=== PATIENT | male | born 1940 | race Caucasian/White ===

== ENCOUNTER 2018-07-01 05:58 | Day surgery (SDC) | payer MEDICARE, OTHER ==
[2018-07-01] MEDS ORDERED: fentaNYL 100 MCG/2 ML SDV IV ONE ×3 (05:59→06:54)
[2018-07-01] MEDS ORDERED: Midazolam 1 MG/ML 2 ML SDV IV ONE ×5 (05:59→07:10)
[2018-07-01] MEDS ORDERED: Dextrose 5%-0.45% NaCl 1,000 ML IV SCH (06:00)
[2018-07-01] MEDS ORDERED: Sodium Chloride 0.9% 10 ML Syringe FLUSH PRN (06:00)
[2018-07-01] MEDS ORDERED: fentaNYL 100 MCG/2 ML SDV ONE (06:10)
[2018-07-01] MEDS ORDERED: Midazolam 1 MG/ML 2 ML SDV ONE (06:10)
--- NOTE | 2018-07-01 17:16 | OR ---
DATE: 07/01/2018 PROCEDURES: Total colonoscopy, narrow-band imaging, and multiple cold snare polypectomies. INSTRUMENT USED: PCF-H180 AL Olympus video colonoscope. PREMEDICATIONS: Fentanyl 100 mcg intravenous, Versed 3.5 mg intravenous. Nasal O2 cannula. The procedure was done under pulse oximetry, BP recording, and supervisor sewer system. INDICATION: The patient with high-risk family history for colon cancer; two brothers with colon cancer. The patient has had colonic polyps before and has had more difficulties of constipation. Colonoscopic examination is done for detection of any polypoid lesions and removal. Endoscopic hemostasis therapy if needed. DESCRIPTION OF PROCEDURE: Initial rectal exam was unremarkable. Rigid anoscopy was normal. The colonoscope was passed with ease. Few scattered diverticula were noted in the distal left colon along with deformity. The scope was passed with ease up to the ileocecal area. Photographs were taken of the cecum showing 5-mm sized benign-appearing polyp at the ileocecal junction. NBI views were obtained. Photographs were taken. Cold snare polypectomy was done. The tissue was retrieved and sent for histopathology. No bleeding was noted from any of the visualized areas at the commencement of the examination. The bowel showed fecal material that had to be aspirated clear. No stricture. No vascular ectasia. No large isolated ulcerations seen. No evidence of diffuse and patchy bowel disease in the form of friability, contact bleeding, or ulcerations. In the mid transverse colon, 5-mm sized benign-appearing polyp was noted. Photograph was taken. Cold snare polypectomy was done. The tissue was retrieved and sent for histopathology. Probing the proximal sides of folds and flexures, using adequate distention and clearing up the stool material, withdrawal of the scope was made. No bleeding was noted from any of the visualized areas at the completion of examination. IMPRESSION: 1. Diverticulosis. 2. Colonic polyps. The patient tolerated the procedure well. [facility] /[id number]
== END 2018-07-01 09:15 | disposition home or self-care (01) ==
LOC: DL.ENDO 05:58
PROVIDERS: ATTEND Internal Medicine Gastroenterology
DX: K59.00 Constipation, unspecified (principal); D12.3 Benign neoplasm of transverse colon; K57.30 Diverticulosis of large intestine without perforation or abscess without bleeding; I89.0 Lymphedema, not elsewhere classified; I10 Essential (primary) hypertension; E78.5 Hyperlipidemia, unspecified; N40.0 Benign prostatic hyperplasia without lower urinary tract symptoms; M81.0 Age-related osteoporosis without current pathological fracture; Z79.82 Long term (current) use of aspirin; Z79.899 Other long term (current) drug therapy; Z88.8 Allergy status to other drugs, medicaments and biological substances; Z86.010 Personal history of colon polyps; Z80.0 Family history of malignant neoplasm of digestive organs
CPT/HCPCS: 45385; J2250; J3010; J7042

== ENCOUNTER 2021-08-20 07:12 | Emergency (ER) | payer MEDICARE, OTHER ==
--- NOTE | 2021-08-20 07:41 | EDM.PDOC ---
ED HPI GENERAL MEDICAL PROBLEM - General Stated Complaint: TROUBLE BREATHING ON WEDNESDAY / PLEASE CHECK IT OUT Time Seen by Provider: 08/20/21 07:30 Source of Information: Reports: Patient, RN, RN Notes Reviewed History Limitations: Reports: No Limitations - History of Present Illness INITIAL COMMENTS - FREE TEXT/NARRATIVE: Omid is an 80 y/o male who presents to the ED via personal vehicle with complaints of transient shortness of breath two days ago. The patient reports he was eating his supper quickly when he noted the need to belch, but felt as though he was unable to. He notes this sensation caused him to feel short of breath for about one minute which then spontaneously subsided. He denies reoccurrence of this sensation. He denies recent illness, fever, shaking chills, cough, sore throat, chest pain/pressure, palpitations, nausea, or vomiting. He denies decrease in appetite or dyspepsia. He denies any changes to his daily medications. He denies tobacco, alcohol, or recreational drug use. - Related Data Allergies Allergy/AdvReac Type Severity Reaction Status Date / Time atorvastatin [From Lipitor] Allergy Cannot Verified 07/01/18 06:14 Remember simvastatin [From Zocor] Allergy Itching Verified 06/27/18 10:39 Home Meds: Home Meds Ascorbic Acid [Vitamin C] 500 mg PO DAILY 06/30/18 [History] Aspirin [Halfprin] 81 mg PO DAILY 06/30/18 [History] Cholecalciferol (Vitamin D3) [Vitamin D3] 1 tab PO DAILY 06/30/18 [History] Dutasteride 0.5 mg PO BEDTIME 06/30/18 [History] Krill/[place]-3/Dha/Epa/Lipids [Krill Oil 300 mg Softgel] 300 mg PO ASDIRECTED 06/30/18 [History] Lutein/Minerals/Vit A,C & E [Ocuvite] 1 tab PO DAILY 06/30/18 [History] Multivitamin [Multivitamins] 1 tab PO ASDIRECTED 06/30/18 [History] Pravastatin Sodium 20 mg PO BEDTIME 06/30/18 [History] Ubidecarenone [Co Q-10] 100 mg PO DAILY 06/30/18 [History] amLODIPine Besylate [Amlodipine Besylate] 5 mg PO BEDTIME 06/30/18 [History] Past Medical History HEENT History: Reports: Retinal Detachment Other HEENT History: wears glasses. 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 Cardiovascular History: Reports: High Cholesterol, Hypertension Respiratory History: Reports: None Gastrointestinal History: Reports: Other (See Below) Other Gastrointestinal History: celiac disease Genitourinary History: Reports: BPH Musculoskeletal History: Reports: Osteoporosis Neurological History: Reports: None Endocrine/Metabolic History: Reports: None Hematologic History: Reports: None Immunologic History: Reports: None Oncologic (Cancer) History: Reports: None Dermatologic History: Reports: Psoriasis - Infectious Disease History Infectious Disease History: Reports: Measles, Mumps - Past Surgical History HEENT Surgical History: Reports: Detached Retina Cardiovascular Surgical History: Reports: None Respiratory Surgical History: Reports: None GI Surgical History: Reports: Colonoscopy Male Surgical History: Reports: Prostate Biopsy Social & Family History - Family History Family Medical History: No Pertinent Family History - Caffeine Use Caffeine Use: Reports: Coffee Other Caffeine Use: rare ED ROS GENERAL - Review of Systems Review Of Systems: Comprehensive ROS is negative, except as noted in HPI. ED EXAM, GENERAL - Physical Exam Exam: See Below Exam Limited By: No Limitations General Appearance: Alert, No Apparent Distress Eye Exam: Bilateral Eye: EOMI, Normal Inspection, PERRL (3mm) Ears: Normal External Exam, Hearing Grossly Normal Nose: Normal Inspection, Normal Mucosa, No Blood Throat/Mouth: Normal Inspection, Normal Oropharynx, Normal Voice, No Airway Compromise Head: Atraumatic, Normocephalic Neck: Normal Inspection, Supple, Non-Tender, Full Range of Motion Respiratory/Chest: No Respiratory Distress, Lungs Clear, Normal Breath Sounds, No Accessory Muscle Use, Chest Non-Tender. No: Crackles, Rales, Rhonchi, Wheezing, Stridor Cardiovascular: Normal Peripheral Pulses, Regular Rate, Rhythm, No Edema, No Gallop, No JVD, Systolic Murmur (2/6, loudest over the tricuspid area) Peripheral Pulses: 2+: Radial (L), Radial (R) GI/Abdominal: Normal Bowel Sounds, Soft, Non-Tender, No Distention, No Abnormal Bruit, No Mass, Pelvis Stable (Male) Exam: Deferred Rectal (Males) Exam: Deferred Back Exam: Normal Inspection, Full Range of Motion Extremities: Normal Inspection, Normal Range of Motion, Normal Capillary Refill Neurological: Alert, Oriented, CN II-XII Intact, Normal Cognition, Normal Gait, No Motor/Sensory Deficits Psychiatric: Normal Affect, Normal Mood Skin Exam: Warm, Dry, Intact, Normal Color, No Rash. No: Cyanosis, Jaundice, Mottled, Pallor #1 Interpretation EKG Date: 08/20/21 Time: 07:45 Rhythm: NSR Rate (Beats/Min): 64 [place]: Normal P-Wave: Present QRS: Normal ST-T: Normal QT: Normal UT/PQ Interval: 0.187 Comparison: NA - No Prior EKG EKG Interpretation Comments: NSR; No evidence of acute myocardial ischemia Course - Orders/Labs/Meds Orders: Active Orders 24 hr Category Date Time Status EKG Documentation Completion [RC] STAT Care 08/20/21 07:41 Active - Re-Assessments/Exams Free Text/Narrative Re-Assessment/Exam: 08/20/21 EKG reveals NSR with no evidence of acute myocardial ischemia. Given HPI and physical exam, no blood work necessary at this time. Patient instructed to follow up with PCP or return to the emergency department with any return of symptoms. Red flag signs and symptoms which would warrant immediate reevaluation discussed. Patient verbalized understanding and agreement with the plan of care. Departure - Departure Time of Disposition: 07:52 Disposition: Home, Self-Care 01 Condition: Good Clinical Impression: Shortness of breath - Discharge Information *PRESCRIPTION DRUG MONITORING PROGRAM REVIEWED*: Not Applicable *COPY OF PRESCRIPTION DRUG MONITORING REPORT IN PATIENT MARTÍNEZ: Not Applicable Instructions: Shortness of Breath, Adult - My Orders Last 24 Hours: My Active Orders 08/20/21 07:41 EKG Documentation Completion [RC] STAT - Assessment/Plan Last 24 Hours: My Active Orders 08/20/21 07:41 EKG Documentation Completion [RC] STAT
== END 2021-08-20 08:20 | disposition home or self-care (01) ==
LOC: DL.ED 07:12
DX: R06.02 Shortness of breath (principal); I10 Essential (primary) hypertension; Z88.8 Allergy status to other drugs, medicaments and biological substances; Z79.82 Long term (current) use of aspirin; Z79.899 Other long term (current) drug therapy
CPT/HCPCS: 99284-25

== ENCOUNTER 2022-07-03 09:15 | Emergency (ER) | payer MEDICARE, OTHER ==
[2022-07-03] MEDS ORDERED: Diphtheria,Pertussis(Acell),Tetanus Vaccine 0.5 ML Syringe IM ONE (10:03)
== END 2022-07-03 10:27 | disposition home or self-care (01) ==
LOC: DL.ED 09:15
DX: S61.211A Laceration without foreign body of left index finger without damage to nail, initial encounter (principal); I10 Essential (primary) hypertension; Z23 Encounter for immunization; Z88.8 Allergy status to other drugs, medicaments and biological substances; Z79.899 Other long term (current) drug therapy; Z79.82 Long term (current) use of aspirin; W26.8XXA Contact with other sharp object(s), not elsewhere classified, initial encounter
CPT/HCPCS: 12001; 90471; 90715; 99282; 99282-25

== ENCOUNTER 2024-09-24 17:43 | Emergency (ER) | payer MEDICARE, OTHER ==
[2024-09-24] MEDS ORDERED: Sodium Chloride 0.9% 10 ML Syringe FLUSH PRN (18:28)
[2024-09-24 18:45] LABS: BASOPHILS PERCENT AUTO 0.5 % (0.0-1.0); EOSINOPHILS PERCENT AUTO 4.3 % (1.0-3.0); HEMATOCRIT 45.5 % (40.0-54.0); HEMOGLOBIN 15.2 g/dL (14.0-18.0); LYMPHOCYTES PERCENT AUTO 19.6 % (20.5-50.1); MEAN CORPUSCULAR HEMOGLOBIN 31.8 pg (27.0-34.0); MEAN CORPUSCULAR HGB CONC 33.4 g/dL (33.0-35.0); MEAN CORPUSCULAR VOLUME 95.2 fL (80-100); MONOCYTES PERCENT AUTO 11.7 % (2-8); NEUTROPHILS PERCENT AUTO 63.9 % (42.2-75.2); PLATELET COUNT,PLT 258 10^3/uL (150-450); RED BLOOD CELL COUNT 4.78 10^6/uL (4.6-6.2); WHITE BLOOD CELL COUNT,WBC 7.9 10^3/uL (5.0-10.0)
[2024-09-24 19:05] LABS: B-TYPE NATRIURETIC PEPTIDE,BNP 79 pg/ml (0-100)
[2024-09-24 19:06] LABS: INR 0.9 (0.9-1.2); PROTHROMBIN TIME 9.4 SEC (9.0-12.0); PTT,PARTIAL THROMBOPLSTIN TIME 23.3 SEC (22.0-34.0)
[2024-09-24 19:08] LABS: A/G RATIO 0.8; ALANINE AMINOTRANSFERASE,ALT 31 U/L (16-63); ALBUMIN 3.4 g/dL (3.4-5.0); ALKALINE PHOSPHATASE 73 U/L (46-116); ANION GAP 12.4 mEq/L (7-13); ASPARTATE AMNIOTRANSFERASE,AST 36 U/L (15-37); BILIRUBIN TOTAL 0.4 mg/dL (0.2-1.0); BLOOD UREA NITROGEN,BUN 20 mg/dL (7-18); CARBON DIOXIDE,CO2 28 mmol/L (21-32); CHLORIDE,CL 104 mmol/L (98-107); CREATININE 0.77 mg/dL (0.70-1.30); GLUCOSE RANDOM 92 mg/dL (70-99); POTASSIUM,K 4.4 mmol/L (3.5-5.1); PROTEIN TOTAL,TP 7.6 g/dL (6.4-8.2); SODIUM,NA 140 mmol/L (136-145)
[2024-09-24 19:10] LABS: ESTIMATED GFR 88 mL/min (>=60)
[2024-09-24 19:23] LABS: LACTIC ACID 1.4 mmol/L (0.4-2.0)
[2024-09-24 19:48] LABS: APPEARANCE,URINE CLEAR (CLEAR); BILIRUBIN,URINE NEGATIVE (NEGATIVE); COLOR,URINE YELLOW (YELLOW); GLUCOSE,URINE NEGATIVE (NEGATIVE); KETONES,URINE NEGATIVE (NEGATIVE); LEUKOCYTE ESTERASE,URINE NEGATIVE (NEGATIVE); NITRITE,URINE NEGATIVE (NEGATIVE); OCCULT BLOOD,URINE TRACE-INTACT (NEGATIVE); PH,URINE 7.5 (5.0-9.0); PROTEIN,URINE NEGATIVE (NEGATIVE); UROBILINOGEN,URINE 0.2 mg/dL (0.2-1.0)
[2024-09-24 19:52] LABS: AMPHETAMINES,URINE NEGATIVE (NEGATIVE); BARBITURATES,URINE NEGATIVE (NEGATIVE); BENZODIAZEPINE,URINE NEGATIVE (NEGATIVE); MDMA (ECSTASY), URINE NEGATIVE (NEGATIVE); METHADONE,URINE NEGATIVE (NEGATIVE); METHAMPHETAMINES,URINE NEGATIVE (NEGATIVE); OPIATES,URINE NEGATIVE (NEGATIVE); OXYCODONE,URINE NEGATIVE (NEGATIVE); PHENCYCLIDINE,URINE NEGATIVE (NEGATIVE); TCA,URINE NEGATIVE (NEGATIVE)
[2024-09-24 20:03] LABS: AMORPHOUS SEDIMENT,URINE MODERATE /HPF (NOT SEEN); BACTERIA,URINE FEW /HPF (0-FEW/HPF); EPITHELIAL CELLS,URINE RARE /HPF (NOT SEEN); MUCUS,URINE FEW /LPF (NOT SEEN); WBC,URINE 0-5 /HPF (0-5/HPF)
[2024-09-24] MEDS ORDERED: Aspirin 81 MG Tab.Chew ONE (20:49)
[2024-09-24] MEDS: Aspirin 81 MG Tab.Chew PO SCH (20:54)
[2024-09-24] MEDS: Iopamidol 755 Mg/ML 100 ML Bottle IVPUSH ONE (21:20)
== END 2024-09-24 21:30 ==
LOC: DL.ED 17:43
DX: G45.9 Transient cerebral ischemic attack, unspecified (principal); E78.00 Pure hypercholesterolemia, unspecified; I10 Essential (primary) hypertension; Z79.82 Long term (current) use of aspirin; Z79.899 Other long term (current) drug therapy; Z88.1 Allergy status to other antibiotic agents; Z88.8 Allergy status to other drugs, medicaments and biological substances
CPT/HCPCS: 36415; 70450; 70496; 70498; 71045; 80053; 80305-QW; 81001; 82947; 83605; 83735; 83880; 84484; 85025; 85610; 85730; 93005; 93010; 99285; A9270-GY; Q9967

== ENCOUNTER 2024-09-29 04:09 | Emergency (ER) | payer MEDICARE, OTHER ==
[2024-09-29 04:45] LABS: BASOPHILS PERCENT AUTO 0.6 % (0.0-1.0); EOSINOPHILS PERCENT AUTO 6.9 % (1.0-3.0); HEMATOCRIT 42.4 % (40.0-54.0); HEMOGLOBIN 14.2 g/dL (14.0-18.0); LYMPHOCYTES PERCENT AUTO 22.6 % (20.5-50.1); MEAN CORPUSCULAR HEMOGLOBIN 31.8 pg (27.0-34.0); MEAN CORPUSCULAR HGB CONC 33.5 g/dL (33.0-35.0); MEAN CORPUSCULAR VOLUME 95.1 fL (80-100); NEUTROPHILS PERCENT AUTO 56.9 % (42.2-75.2); PLATELET COUNT,PLT 247 10^3/uL (150-450); RED BLOOD CELL COUNT 4.46 10^6/uL (4.6-6.2); WHITE BLOOD CELL COUNT,WBC 6.5 10^3/uL (5.0-10.0)
[2024-09-29 05:01] LABS: INR 0.9 (0.9-1.2); PROTHROMBIN TIME 9.7 SEC (9.0-12.0)
[2024-09-29 05:10] LABS: ALBUMIN 3.2 g/dL (3.4-5.0); ANION GAP 12.7 mEq/L (7-13); BILIRUBIN TOTAL 0.3 mg/dL (0.2-1.0); BUN/CREATININE RATIO 24.4 (No establ ref range); CALCIUM 9.4 mg/dL (8.5-10.1); CREATININE 0.9 mg/dL (0.70-1.30); EST CRCL DRUG DOSING (CG) 63.09 mL/min; POTASSIUM,K 3.7 mmol/L (3.5-5.1); PROTEIN TOTAL,TP 6.7 g/dL (6.4-8.2)
[2024-09-29 05:11] LABS: A/G RATIO 0.91
[2024-09-29] MEDS: Iopamidol 755 Mg/ML 100 ML Bottle IVPUSH ONE (05:58)
== END 2024-09-29 07:29 ==
LOC: DL.ED 04:09
DX: G45.9 Transient cerebral ischemic attack, unspecified (principal); I10 Essential (primary) hypertension; E78.00 Pure hypercholesterolemia, unspecified; Z86.73 Personal history of transient ischemic attack (TIA), and cerebral infarction without residual deficits; Z88.8 Allergy status to other drugs, medicaments and biological substances; Z79.82 Long term (current) use of aspirin; Z79.899 Other long term (current) drug therapy
CPT/HCPCS: 36415; 70450; 70496; 70498; 80053; 82947; 83735; 84484; 85025; 85610; 93005; 99285; Q9967; 93010